=== PATIENT | female | born 1975 | race Caucasian/White ===

== ENCOUNTER 2023-04-05 05:18 | Emergency (ER) | payer MEDICAID ==
[~2023-04-05] VITALS: Ht 154.9 cm; Wt 68.0 kg
[2023-04-05 05:23] VITALS: BP_SYST 106; PULSE 73; RESP 20; TEMP 97.7; O2SAT 99
--- NOTE | 2023-04-05 05:30 | NUR ---
Patient to ER CHAIR 1 for evaluation. Side rails up.
--- NOTE | 2023-04-05 05:30 | NUR ---
PT BIB [facility] WITH C/O RIGHT FLANK PAIN RAD TO BACK, DENIES PAIN DURING URINATION. DENIES N/V/D. A/O X 4, AMBULATORY.
--- NOTE | 2023-04-05 05:33 | NUR ---
ERMD AT BEDSIDE EVALUATING PATIENT.
[2023-04-05] MEDS ORDERED: KETOROLAC TROMETHAMINE 15 MG VIAL IM ONE (05:45)
[2023-04-05 06:46] LABS: BASOPHILS # (AUTO) 0.1 K/uL (0.0-0.2); BASOPHILS % (AUTO) 0.7 % (0.0-2.0); EOSINOPHILS # (AUTO) 0.5 K/uL (0.0-0.4); EOSINOPHILS % (AUTO) 5.1 % (0.0-4.0); HEMATOCRIT 44.2 % (36-48); HEMOGLOBIN 14.9 g/dL (12.0-16.0); LYMPHOCYTES # (AUTO) 2.4 K/uL (1.0-5.5); LYMPHOCYTES % (AUTO) 26.2 % (20.5-51.5); MEAN CORPUSCULAR HEMOGLOBIN 29 pg (27-31); MEAN CORPUSCULAR HGB CONC 34 % (32-36); MEAN CORPUSCULAR VOLUME 87 fL (79.0-98.0); MONOCYTES # (AUTO) 0.8 K/uL (0.0-1.0); MONOCYTES % (AUTO) 8.6 % (1.7-9.3); NEUTROPHILS # (AUTO) 5.4 K/uL (1.8-7.7); NEUTROPHILS % (AUTO) 59.4 % (40.0-70.0); PLATELET COUNT (AUTO) 292 K/uL (130-430); RED CELL DISTRIBUTION WIDTH 12.9 % (9.0-15.0)
[2023-04-05 06:55] LABS: CALCIUM 8.5 mg/dL (8.4-11.0); CREATININE 0.68 mg/dL (0.55-1.30)
[2023-04-05 06:59] LABS: ALBUMIN 3.4 g/dL (3.4-4.8); TOTAL BILIRUBIN 0.4 mg/dL (0.0-1.0)
[2023-04-05 07:00] LABS: BILIRUBIN,URINE NEGATIVE (NEGATIVE); BLOOD, URINE NEGATIVE (NEGATIVE); CLARITY/URINE CLEAR (CLEAR); COLOR,URINE YELLOW (YELLOW); GLUCOSE,URINE NEGATIVE (NEGATIVE); KETONES,URINE NEGATIVE (NEGATIVE); LEUKOCYTE ESTERASE ,URINE NEGATIVE (NEGATIVE); NITRITE, URINE NEGATIVE (NEGATIVE); PROTEIN URINE NEGATIVE (NEGATIVE)
[2023-04-05] MEDS ORDERED: IBUP-1969 PO (08:25)
[2023-04-05] MEDS ORDERED: TRAM50TA2 PO (08:25)
[2023-04-05 08:38] VITALS: BP_SYST 106; PULSE 73; RESP 20; TEMP 97.7; O2SAT 99
--- NOTE | 2023-04-05 08:39 | NUR ---
Patient given written and verbal discharge instructions and verbalizes understanding. ER MD discussed with patient the results and treatment provided. Patient in stable condition. ID arm band removed. Rx of Ibuprofen and Tramadol given. Patient educated on pain management and to follow up with PMD. Pain Scale 2/10. Opportunity for questions provided and answered. Medication side effect fact sheet provided.
== END 2023-04-05 08:39 | disposition home or self-care (01) ==
LOC: SED 05:18
DX: R10.9 Unspecified abdominal pain (principal); R11.0 Nausea; E11.9 Type 2 diabetes mellitus without complications; Z79.899 Other long term (current) drug therapy
CPT/HCPCS: 99285; 74176; 80053; 83690; 85025; 36415; 93005; 76376; 81025; 96372; 81003; J1885